=== PATIENT | female | born 1995 | race Caucasian/White ===

== ENCOUNTER 2017-10-30 16:13 | Emergency (ER) | payer SELFPAY ==
[2017-10-30] MEDS ORDERED: Ketorolac 60 MG/2 ML SDV IM ONE (16:37)
--- NOTE | 2017-10-30 16:42 | EDM.PDOC ---
ED HPI GENERAL MEDICAL PROBLEM - General Chief Complaint: Respiratory Problem Stated Complaint: CHEST PAIN Time Seen by Provider: 10/30/17 16:18 Source of Information: Reports: Patient History Limitations: Reports: No Limitations - History of Present Illness INITIAL COMMENTS - FREE TEXT/NARRATIVE: Presents to the ER reporting that yesterday afternoon she was coughing and she had had a cold and she felt a pull in her right shoulder/pectoral area and in the shoulder blade area of the back. He took some ibuprofen and Tylenol and took a hot bath and it did feel better but it continues to cause irritation today. Her cough is resolved, no fever, breathing problems, ear fullness, sore throat. Right shouler Pain Score (Numeric/FACES): 6 - Related Data Allergies Allergy/AdvReac Type Severity Reaction Status Date / Time No Known Allergies Allergy Verified 10/30/17 16:22 Home Meds: Home Meds predniSONE [Prednisone] 2 tab PO DAILY #10 tablet 10/30/17 [Rx] Past Medical History Respiratory History: Reports: Sleep Apnea Gastrointestinal History: Reports: GERD [employer] History: Reports: , Spontaneous Hematologic History: Reports: Anemia - Infectious Disease History Infectious Disease History: Reports: Chicken Pox - Past Surgical History HEENT Surgical History: Reports: Other (See Below) Other HEENT Surgeries/Procedures: ear drum repair and cyst removed on throat GI Surgical History: Reports: None Social & Family History - Family History Family Medical History: Noncontributory Cardiac: Reports: Other (See Below) Other Cardiac Family History: heart attack Endocrine/Metabolic: Reports: Diabetes, type II - Tobacco Use Smoking Status *Q: Current Some Day Smoker Years of Tobacco use: 4 Packs/Tins Daily: 0.1 - Recreational Drug Use Recreational Drug Use: No ED ROS GENERAL - Review of Systems Review Of Systems: ROS reveals no pertinent complaints other than HPI. ED EXAM, GENERAL - Physical Exam Exam: See Below Exam Limited By: No Limitations General Appearance: Alert, No Apparent Distress Ears: Normal External Exam, Normal TMs Nose: Normal Inspection Throat/Mouth: Normal Inspection Head: Atraumatic, Normocephalic Neck: Normal Inspection. No: Lymphadenopathy (L), Lymphadenopathy (R) Respiratory/Chest: No Respiratory Distress, Lungs Clear, Normal Breath Sounds, No Accessory Muscle Use, Other (Tenderness over the lateral first and second rib area on the right and over the superior shoulder blade on the right back) Cardiovascular: Normal Peripheral Pulses GI/Abdominal: Soft Extremities: Normal Inspection Psychiatric: Normal Affect, Normal Mood Skin Exam: Warm, Dry, Intact, Normal Color, No Rash Lymphatic: No Adenopathy Course - Vital Signs Last Recorded V/S: Last Vital Signs Temp 36.6 C 10/30/17 16:24 Pulse 72 10/30/17 16:24 Resp 16 10/30/17 16:24 BP 107/65 10/30/17 16:24 Pulse Ox 98 10/30/17 16:24 Departure - Departure Time of Disposition: 16:41 Disposition: Home, Self-Care 01 Condition: Good Clinical Impression: Pulled muscle - Discharge Information Referrals: PCP,None [Primary Care Provider] - Additional Instructions: 1. Take your prednisone daily 2. Consider massage 3. Warm packs 20 minutes every 3-4 hours as needed for pain.
[2017-10-30 17:20] VITALS: BP 97/57
== END 2017-10-30 17:14 | disposition home or self-care (01) ==
LOC: MW.ED 16:13
DX: S46.911A Strain of unspecified muscle, fascia and tendon at shoulder and upper arm level, right arm, initial encounter (principal); F17.210 Nicotine dependence, cigarettes, uncomplicated; X58.XXXA Exposure to other specified factors, initial encounter
CPT/HCPCS: 96372; 99282; J1885